=== PATIENT | male | born 1965 | race Two or more races ===

== ENCOUNTER 2021-07-29 17:49 | Emergency (ER) | payer MEDICAID, OTHER ==
[~2021-07-29] VITALS: Ht 180.3 cm; Wt 88.5 kg
[2021-07-29] MEDS ORDERED: IPRATROPIUM BROM 0.5 MG/2.5ML INH SOL ONE (18:24)
[2021-07-29] MEDS ORDERED: ALBUTEROL SULF 2.5 MG/0.5ML(0.5%) NEB SOLN ONE (18:25)
[2021-07-29] MEDS ORDERED: methylPREDNISolone SOD SUCC 125 MG/2 ML VL IV ONE (18:30)
[2021-07-29] MEDS ORDERED: ALBUTEROL SULF 2.5 MG/0.5ML(0.5%) NEB SOLN HHN ONE (18:30)
[2021-07-29] MEDS ORDERED: IPRATROPIUM BROM 0.5 MG/2.5ML INH SOL HHN ONE (18:30)
[2021-07-29 18:43] VITALS: BP 196/122
== END 2021-07-29 20:52 | disposition left against medical advice (07) ==
LOC: EDBD 17:49 → ER 17:49
DX: J45.901 Unspecified asthma with (acute) exacerbation (principal)
CPT/HCPCS: 94644; 96374; 99285; J2930; J7644

== ENCOUNTER 2021-08-22 07:06 | Inpatient (IN) | payer MEDICAID ==
[~2021-08-22] VITALS: Ht 180.3 cm; Wt 89.3 kg
[2021-08-22 08:14] LABS: Basophils # (auto) 0.1 10 ^3/uL (0-0.2); Basophils % (auto) 1.1 % (0.0-2.0); Eosinophils # (auto) 0.1 10 ^3/uL (0-0.8); Eosinophils % (auto) 0.8 % (0.0-7.0); Hematocrit 38.3 % (41.0-53.0); Hemoglobin 12.3 g/dL (13.5-17.5); Lymphocytes # (auto) 1.1 10 ^3/uL (0.4-5.4); Lymphocytes % (auto) 13.6 % (10.0-50.0); Mean Corpuscular Hemoglobin 27.7 pg (28.0-32.0); Mean Corpuscular Volume 86.5 fL (80.0-100.0); Monocytes # (auto) 0.5 10 ^3/uL (0-1.3); Monocytes % (auto) 5.6 % (0.0-12.0); Neutrophils # (auto) 6.4 10 ^3/uL (1.6-8.6); Neutrophils % (auto) 78.9 % (37.0-80.0); Nucleated Red Blood Cells % 0.1 %; Red Blood Cells 4.43 10^6/uL (4.5-5.90); Red Cell Distribution Width 16.3 % (11.8-14.3); White Blood Cell 8.1 10^3/uL (4.4-10.8)
[2021-08-22 09:50] LABS: Albumin 3.1 g/dL (3.4-5.0); Calcium 7.6 mg/dL (8.5-10.1); Potassium 3.7 mmol/L (3.5-5.1)
[2021-08-22 10:00] LABS: BUN/Creatinine Ratio 17.8; Bilirubin, Total 0.7 mg/dL (0.2-1.0)
[2021-08-22] MEDS ORDERED: NITROGLYCERIN 0.4 MG SL TAB SL PRN (14:15)
[2021-08-22] MEDS ORDERED: HYDROcodone-ACET 5/325MG TAB PO PRN (14:15)
[2021-08-22] MEDS ORDERED: ACETAMINOPHEN 325 MG TAB PO PRN (14:15)
[2021-08-22] MEDS ORDERED: MORPHINE SULFATE 4 MG/ML SYR/VIAL IV PRN (14:15)
[2021-08-22] MEDS ORDERED: MORPHINE SULFATE INJECTION 2 MG/ML SYRG IV PRN (14:15)
[2021-08-22 22:00] VITALS: BP 133/93
[2021-08-23 01:01] VITALS: BP 133/93
[2021-08-23] MEDS ORDERED: BUDE1AER4 IN (01:19)
[2021-08-23 05:00] VITALS: BP 134/94
[2021-08-23 07:09] LABS: Potassium 4.2 mmol/L (3.5-5.1)
[2021-08-23 07:12] LABS: BUN/Creatinine Ratio 20.7; Calcium 8.3 mg/dL (8.5-10.1)
[2021-08-23 07:16] LABS: Bilirubin, Total 0.5 mg/dL (0.2-1.0); Total Protein 5.9 g/dL (6.4-8.2)
[2021-08-23 07:21] LABS: Basophils # (auto) 0.1 10 ^3/uL (0-0.2); Basophils % (auto) 0.9 % (0.0-2.0); Eosinophils # (auto) 0.1 10 ^3/uL (0-0.8); Eosinophils % (auto) 1.7 % (0.0-7.0); Hematocrit 36.7 % (41.0-53.0); Hemoglobin 12.4 g/dL (13.5-17.5); Lymphocytes # (auto) 1.6 10 ^3/uL (0.4-5.4); Lymphocytes % (auto) 20.5 % (10.0-50.0); Mean Corpuscular Hemoglobin 29.4 pg (28.0-32.0); Mean Corpuscular Hgb Conc. 33.7 g/dL (32.0-36.0); Mean Corpuscular Volume 87.1 fL (80.0-100.0); Monocytes # (auto) 0.5 10 ^3/uL (0-1.3); Monocytes % (auto) 6.5 % (0.0-12.0); Neutrophils # (auto) 5.4 10 ^3/uL (1.6-8.6); Neutrophils % (auto) 70.4 % (37.0-80.0); Nucleated Red Blood Cells % 0.1 %; Red Blood Cells 4.22 10^6/uL (4.5-5.90); Red Cell Distribution Width 16.2 % (11.8-14.3); White Blood Cell 7.7 10^3/uL (4.4-10.8)
[2021-08-23] MEDS: ENOXAPARIN SOD 40 MG/0.4 ML SYRINGE SC SCH (09:00)
[2021-08-23 09:13] VITALS: BP 134/79
[2021-08-23] MEDS: CARVEDILOL 3.125 MG TAB PO SCH ×2 (10:00→23:11)
[2021-08-23 10:29] LABS: Cholesterol 138 mg/dL (< 200)
[2021-08-23] MEDS ORDERED: FUROSEMIDE 40 MG/4 ML VIAL IV ONE (10:30)
[2021-08-23 10:32] LABS: HDL Cholesterol 30 mg/dL (40-59); LDL Cholesterol 97 mg/dL (< 100); Triglycerides 72 mg/dL (< 150)
[2021-08-23] MEDS: DAPAGLIFLOZIN 5 MG TAB PO SCH (12:00)
[2021-08-23] MEDS: SACUBITRIL-VALSARTAN 24mg/26mg TAB PO SCH ×2 (12:00→23:11)
[2021-08-23 12:28] LABS: Amphetamine Screen, Urine POSITIVE (NEGATIVE); Barbiturate Scree,Urine NEGATIVE (NEGATIVE); Benzodiazephine Screen, Urine NEGATIVE (NEGATIVE); Cannabinoid Screen, Urine NEGATIVE (NEGATIVE)
[2021-08-23 12:33] LABS: Cocaine Screen, Urine NEGATIVE (NEGATIVE); Opiate Scree,Urine NEGATIVE (NEGATIVE); Phencyclidine Screen, Urine NEGATIVE (NEGATIVE)
[2021-08-23 13:00] VITALS: BP 141/89
[2021-08-23 17:18] VITALS: BP 145/90
[2021-08-23] MEDS: FUROSEMIDE 40 MG/4 ML VIAL IV SCH (17:28)
[2021-08-23] MEDS ORDERED: cefTRIAXone 1GM/50ML D5W 50 ML IV ONE (20:45)
[2021-08-23 22:00] VITALS: BP 116/67
[2021-08-23] MEDS: DOXYCYCLINE 100 MG TAB/CAP PO SCH (23:11)
[2021-08-24 05:29] VITALS: BP 117/61
[2021-08-24] MEDS: FUROSEMIDE 40 MG/4 ML VIAL IV SCH (06:21)
[2021-08-24 09:00] VITALS: BP 122/72
[2021-08-24] MEDS: CARVEDILOL 3.125 MG TAB PO SCH (09:55)
[2021-08-24] MEDS: DAPAGLIFLOZIN 5 MG TAB PO SCH (09:55)
[2021-08-24] MEDS: SACUBITRIL-VALSARTAN 24mg/26mg TAB PO SCH (09:56)
[2021-08-24] MEDS: ENOXAPARIN SOD 40 MG/0.4 ML SYRINGE SC SCH (09:56)
[2021-08-24] MEDS: DOXYCYCLINE 100 MG TAB/CAP PO SCH (09:56)
[2021-08-24] MEDS ORDERED: ALBU108A5 IN (11:14)
[2021-08-24] MEDS ORDERED: TIOTCAP IN (11:14)
[2021-08-24] MEDS ORDERED: FLUT1AER6 IN (11:14)
[2021-08-24 12:33] VITALS: BP 112/76
[2021-08-24] MEDS ORDERED: FURO40TA4 PO (13:34)
[2021-08-24] MEDS ORDERED: CAR3125T PO (13:34)
[2021-08-24] MEDS ORDERED: DOX100T PO (13:34)
[2021-08-24] MEDS ORDERED: LISI2.5T47 PO (13:35)
[2021-08-24 17:27] VITALS: BP 128/86
[2021-08-24] MEDS ORDERED: cefTRIAXone 1GM/50ML D5W 50 ML IV SCH (21:00)
== END 2021-08-24 18:00 | disposition home or self-care (01) | DRG 194 ==
LOC: ER 07:06 → EDBD 07:06 → TELE 14:08 → TELE-WESTW 22:03
PROVIDERS: ADMIT Internal Medicine; ATTEND Internal Medicine Nephrology
DX: I50.23 Acute on chronic systolic (congestive) heart failure (principal); I27.20 Pulmonary hypertension, unspecified; I47.2 Ventricular tachycardia; I24.9 Acute ischemic heart disease, unspecified; I42.7 Cardiomyopathy due to drug and external agent; E66.9 Obesity, unspecified; Z20.822 Contact with and (suspected) exposure to COVID-19; F15.90 Other stimulant use, unspecified, uncomplicated; F19.10 Other psychoactive substance abuse, uncomplicated; I36.1 Nonrheumatic tricuspid (valve) insufficiency; J44.9 Chronic obstructive pulmonary disease, unspecified; N18.2 Chronic kidney disease, stage 2 (mild); Z91.19 Patient's noncompliance with other medical treatment and regimen; Z68.27 Body mass index [BMI] 27.0-27.9, adult
CPT/HCPCS: 36415; 71045; 80053; 80061; 80307; 83036; 83880; 84443; 84484; 85025; 87081; 93005; 93306; G0378; J0696

== ENCOUNTER 2021-10-27 20:07 | Emergency (ER) | payer MEDICAID ==
[~2021-10-27] VITALS: Ht 180.3 cm; Wt 83.9 kg
[~2021-10-27 20:07] MED LIST: ALBU108A5 IN; CAR3125T PO; DOX100T PO; FLUT1AER6 IN; FURO40TA4 PO; TIOTCAP IN
[2021-10-27 21:18] LABS: Basophils # (auto) 0.1 10 ^3/uL (0-0.2); Basophils % (auto) 1.3 % (0.0-2.0); Eosinophils # (auto) 0.4 10 ^3/uL (0-0.8); Hematocrit 39.1 % (41.0-53.0); Hemoglobin 12.7 g/dL (13.5-17.5); Lymphocytes # (auto) 1.5 10 ^3/uL (0.4-5.4); Mean Corpuscular Hemoglobin 28.2 pg (28.0-32.0); Mean Corpuscular Hgb Conc. 32.4 g/dL (32.0-36.0); Mean Corpuscular Volume 87.1 fL (80.0-100.0); Monocytes # (auto) 0.6 10 ^3/uL (0-1.3); Monocytes % (auto) 6.4 % (0.0-12.0); Neutrophils # (auto) 6.6 10 ^3/uL (1.6-8.6); Neutrophils % (auto) 72.3 % (37.0-80.0); Nucleated Red Blood Cells % 0.1 %; Red Blood Cells 4.49 10^6/uL (4.5-5.90); Red Cell Distribution Width 15.4 % (11.8-14.3); White Blood Cell 9.2 10^3/uL (4.4-10.8)
[2021-10-27 21:36] LABS: Potassium 4.9 mmol/L (3.5-5.1)
[2021-10-27 21:41] LABS: Albumin 3.1 g/dL (3.4-5.0); BUN/Creatinine Ratio 17.6; Calcium 8.4 mg/dL (8.5-10.1); Magnesium 2.3 mg/dL (1.6-2.6)
[2021-10-27 21:44] LABS: Bilirubin, Total 0.5 mg/dL (0.2-1.0); Total Protein 6.5 g/dL (6.4-8.2)
[2021-10-27] MEDS ORDERED: FUROSEMIDE 100 MG/10ML VIAL IV ONE (23:15)
[2021-10-28 02:30] VITALS: BP 139/91
== END 2021-10-28 03:15 | disposition home or self-care (01) ==
LOC: ER 20:15
DX: I50.9 Heart failure, unspecified (principal); J45.909 Unspecified asthma, uncomplicated; Z91.19 Patient's noncompliance with other medical treatment and regimen; Z79.2 Long term (current) use of antibiotics; Z79.899 Other long term (current) drug therapy
CPT/HCPCS: 36415; 71045; 80053; 83735; 83880; 84443; 84484; 85025; 93005; 96374; 99285; J1940

== ENCOUNTER 2021-10-28 05:19 | Inpatient (IN) | payer OTHER, MEDICAID ==
[~2021-10-28] VITALS: Ht 180.3 cm; Wt 86.0 kg
[2021-10-28 11:57] LABS: Basophils # (auto) 0.1 10 ^3/uL (0-0.2); Basophils % (auto) 1.5 % (0.0-2.0); Eosinophils # (auto) 0.2 10 ^3/uL (0-0.8); Eosinophils % (auto) 2.9 % (0.0-7.0); Hematocrit 37.6 % (41.0-53.0); Hemoglobin 12.1 g/dL (13.5-17.5); Lymphocytes # (auto) 1.1 10 ^3/uL (0.4-5.4); Lymphocytes % (auto) 13.2 % (10.0-50.0); Mean Corpuscular Hemoglobin 27.7 pg (28.0-32.0); Mean Corpuscular Hgb Conc. 32.1 g/dL (32.0-36.0); Mean Corpuscular Volume 86.3 fL (80.0-100.0); Monocytes # (auto) 0.4 10 ^3/uL (0-1.3); Monocytes % (auto) 4.9 % (0.0-12.0); Neutrophils # (auto) 6.2 10 ^3/uL (1.6-8.6); Neutrophils % (auto) 77.5 % (37.0-80.0); Nucleated Red Blood Cells % 0.1 %; Red Blood Cells 4.35 10^6/uL (4.5-5.90); Red Cell Distribution Width 15.4 % (11.8-14.3); White Blood Cell 7.9 10^3/uL (4.4-10.8)
[2021-10-28] MEDS ORDERED: FUROSEMIDE 40 MG/4 ML VIAL IV ONE (12:00)
[2021-10-28] MEDS ORDERED: ASPirin 81 mg TAB PO ONE (12:00)
[2021-10-28 12:16] LABS: Albumin 3.1 g/dL (3.4-5.0); Calcium 8.2 mg/dL (8.5-10.1); Magnesium 2.2 mg/dL (1.6-2.6); Potassium 3.7 mmol/L (3.5-5.1)
[2021-10-28 12:21] LABS: Bilirubin, Total 0.6 mg/dL (0.2-1.0); Total Protein 6.7 g/dL (6.4-8.2)
[2021-10-28] MEDS ORDERED: NITROGLYCERIN 0.4 MG SL TAB SL PRN (13:00)
[2021-10-28] MEDS ORDERED: MORPHINE SULFATE INJECTION 2 MG/ML SYRG IV PRN ×2 (13:00→14:15)
[2021-10-28] MEDS ORDERED: DOCUSATE SOD 100 MG CAP PO PRN (14:15)
[2021-10-28] MEDS ORDERED: ONDANSETRON HCL 4 MG/2 ML VIAL IV PRN (14:15)
[2021-10-28] MEDS ORDERED: FAMOTIDINE (10MG/ML) 2ML VL IV ONE (14:15)
[2021-10-28] MEDS ORDERED: ACETAMINOPHEN 325 MG TAB PO PRN (14:15)
[2021-10-28] MEDS ORDERED: hydrALAZINE HCL 20 MG/ML VL IV PRN (14:15)
[2021-10-28] MEDS ORDERED: LORazepam 0.5 MG TAB PO PRN (14:15)
[2021-10-28 14:35] LABS: Phosphorus 3.5 mg/dL (2.5-4.90)
[2021-10-28 17:12] LABS: INR 1.4 (0.9-1.15); Partial Thromboplastin Time 26.2 sec (23.6-33.0)
[2021-10-28] MEDS: IPRATROPIUM BROM 0.5 MG/2.5ML INH SOL NEB SCH ×2 (18:00→22:00)
[2021-10-28] MEDS: BUMETANIDE 2.5mg/10ml (0.25 mg/ml) INJ IV SCH (18:18)
[2021-10-28 18:56] VITALS: BP 151/104
[2021-10-28 20:36] VITALS: BP 144/92
[2021-10-28] MEDS ORDERED: ATORVASTATIN 20 MG TAB PO SCH (22:00)
[2021-10-28] MEDS: CARVEDILOL 3.125 MG TAB PO SCH (22:23)
[2021-10-29] VITALS (13 sets, daily range): BP systolic 113–142; BP diastolic 64–91
[2021-10-29] MEDS ORDERED: IPRATROPIUM BROM 0.5 MG/2.5ML INH SOL NEB PRN (02:00)
[2021-10-29] MEDS: BUMETANIDE 2.5mg/10ml (0.25 mg/ml) INJ IV SCH ×2 (06:12→17:58)
[2021-10-29 07:29] LABS: Urine WBC None Seen /hpf (0 - 3)
[2021-10-29 07:34] LABS: Urine Bacteria NONE SEEN /hpf (None Seen); Urine Blood Negative /uL (Negative)
[2021-10-29 07:54] LABS: Alcohol, Urine < 3.0 mg/dL (0-10); Amphetamine Screen, Urine NEGATIVE (NEGATIVE); Barbiturate Scree,Urine NEGATIVE (NEGATIVE); Benzodiazephine Screen, Urine NEGATIVE (NEGATIVE); Cannabinoid Screen, Urine POSITIVE (NEGATIVE); Cocaine Screen, Urine NEGATIVE (NEGATIVE); Opiate Scree,Urine NEGATIVE (NEGATIVE); Phencyclidine Screen, Urine NEGATIVE (NEGATIVE); Protein, Urine 8.9 mg/dL (0.0-11.9)
[2021-10-29] MEDS ORDERED: ANGIOMAX 250 MG VIAL IV ONE (09:06)
[2021-10-29] MEDS ORDERED: VERAPAMIL 2.5MG/ML INJ 2ML VIAL IV ONE (09:06)
[2021-10-29] MEDS ORDERED: HEPARIN SODIUM (PORCINE) 5000 UNITS/ML 1ML VIAL ONE (09:06)
[2021-10-29] MEDS ORDERED: SODIUM CHL 0.9% 0 ML ONE (09:07)
[2021-10-29] MEDS ORDERED: fentaNYL CITRATE 100 MCG/2 ML VL ONE (09:07)
[2021-10-29] MEDS ORDERED: METOCLOPRAMIDE HCL 5MG/ml INJ 2ml VIAL ONE (09:08)
[2021-10-29] MEDS: CARVEDILOL 3.125 MG TAB PO SCH ×2 (10:00→21:55)
[2021-10-29] MEDS ORDERED: FAMOTIDINE (10MG/ML) 2ML VL IV SCH (10:00)
[2021-10-29] MEDS: ASPirin 81 mg TAB PO SCH (10:00)
[2021-10-29] MEDS: BENAZEPRIL HCL 10 MG TAB PO SCH (10:00)
[2021-10-29] MEDS: ENOXAPARIN SOD 40 MG/0.4 ML SYRINGE SC SCH (10:00)
[2021-10-29 13:55] LABS: Basophils # (auto) 0.1 10 ^3/uL (0-0.2); Basophils % (auto) 1.3 % (0.0-2.0); Eosinophils # (auto) 0.5 10 ^3/uL (0-0.8); Eosinophils % (auto) 5.8 % (0.0-7.0); Hematocrit 35.9 % (41.0-53.0); Hemoglobin 11.8 g/dL (13.5-17.5); Lymphocytes # (auto) 0.8 10 ^3/uL (0.4-5.4); Mean Corpuscular Hemoglobin 28.4 pg (28.0-32.0); Mean Corpuscular Hgb Conc. 32.9 g/dL (32.0-36.0); Mean Corpuscular Volume 86.2 fL (80.0-100.0); Monocytes # (auto) 0.5 10 ^3/uL (0-1.3); Neutrophils # (auto) 6.2 10 ^3/uL (1.6-8.6); Neutrophils % (auto) 76.9 % (37.0-80.0); Red Blood Cells 4.16 10^6/uL (4.5-5.90); Red Cell Distribution Width 15.4 % (11.8-14.3); White Blood Cell 8.1 10^3/uL (4.4-10.8)
[2021-10-29 14:07] LABS: Albumin 2.8 g/dL (3.4-5.0); Calcium 8.1 mg/dL (8.5-10.1); Magnesium 1.6 mg/dL (1.6-2.6); Potassium 3.4 mmol/L (3.5-5.1)
[2021-10-29 14:13] LABS: BUN/Creatinine Ratio 17.3; Bilirubin, Total 0.6 mg/dL (0.2-1.0); CRP High Sensitivity 0.85 mg/dL (< 0.3); Phosphorus 3.6 mg/dL (2.5-4.90); Total Protein 6.4 g/dL (6.4-8.2)
[2021-10-29 14:19] LABS: Thyroid Stimulating Hormone 1.43 uIU/mL (0.358-3.74)
[2021-10-29 14:24] LABS: INR 1.41 (0.9-1.15); Partial Thromboplastin Time 22.3 sec (23.6-33.0)
[2021-10-29] MEDS ORDERED: POTASSIUM CHL 10 Meq TABLET PO ONE (15:30)
[2021-10-29] MEDS: MAGNESIUM OXIDE 400 MG TAB PO SCH (21:55)
[2021-10-29] MEDS: ATORVASTATIN 20 MG TAB PO SCH (21:56)
[2021-10-29] MEDS ORDERED: POTASSIUM CHL 10 Meq TABLET PO SCH (22:00)
[2021-10-29] MEDS: HYDROcodone-ACET 5/325MG TAB PO PRN (23:22)
[2021-10-30] MEDS ORDERED: MORPHINE SULFATE 4 MG/ML SYR/VIAL IV PRN ×2 (04:00)
[2021-10-30 05:00] VITALS: BP 132/70
[2021-10-30] MEDS: BUMETANIDE 2.5mg/10ml (0.25 mg/ml) INJ IV SCH (05:17)
[2021-10-30 09:00] VITALS: BP 110/64
[2021-10-30 09:26] LABS: BUN/Creatinine Ratio 16.2; Calcium 8.2 mg/dL (8.5-10.1)
[2021-10-30] MEDS: CARVEDILOL 3.125 MG TAB PO SCH ×2 (10:08→21:31)
[2021-10-30] MEDS: BENAZEPRIL HCL 10 MG TAB PO SCH (10:09)
[2021-10-30] MEDS: POTASSIUM CHL 20 Meq TABLET PO SCH ×2 (10:09→21:31)
[2021-10-30] MEDS: MAGNESIUM OXIDE 400 MG TAB PO SCH ×2 (10:09→21:30)
[2021-10-30] MEDS: ASPirin 81 mg TAB PO SCH (10:09)
[2021-10-30] MEDS: ENOXAPARIN SOD 40 MG/0.4 ML SYRINGE SC SCH (10:09)
[2021-10-30 13:00] VITALS: BP 100/63
[2021-10-30] MEDS ORDERED: POTASSIUM CHL 20 Meq TABLET PO ONE (14:15)
[2021-10-30] MEDS ORDERED: ATOR20TA PO ×2 (15:30)
[2021-10-30] MEDS ORDERED: ASPI-543 PO ×2 (15:30)
[2021-10-30] MEDS ORDERED: MAGN241.4 PO ×2 (16:34)
[2021-10-30] MEDS ORDERED: POTA-220 PO ×2 (16:34)
[2021-10-30] MEDS ORDERED: EMPA1TAB PO ×2 (16:34)
[2021-10-30] MEDS ORDERED: CAR3125T PO ×2 (16:34)
[2021-10-30] MEDS ORDERED: BENA10TA15 PO ×2 (16:34)
[2021-10-30 17:00] VITALS: BP 100/57
[2021-10-30] MEDS: FUROSEMIDE 20 MG TAB PO SCH (17:24)
[2021-10-30] MEDS: ATORVASTATIN 20 MG TAB PO SCH (21:30)
[2021-10-30 22:00] VITALS: BP 113/68
[2021-10-31 04:53] VITALS: BP 103/60
[2021-10-31] MEDS: FUROSEMIDE 20 MG TAB PO SCH (05:16)
[2021-10-31 08:24] LABS: Calcium 8.4 mg/dL (8.5-10.1)
[2021-10-31 08:26] LABS: BUN/Creatinine Ratio 18.8
[2021-10-31] MEDS: POTASSIUM CHL 20 Meq TABLET PO SCH (08:48)
[2021-10-31] MEDS: MAGNESIUM OXIDE 400 MG TAB PO SCH ×2 (08:48→22:06)
[2021-10-31] MEDS: ASPirin 81 mg TAB PO SCH (08:48)
[2021-10-31] MEDS: ENOXAPARIN SOD 40 MG/0.4 ML SYRINGE SC SCH (08:48)
[2021-10-31] MEDS: BENAZEPRIL HCL 10 MG TAB PO SCH (08:50)
[2021-10-31] MEDS: CARVEDILOL 3.125 MG TAB PO SCH ×2 (08:50→22:07)
[2021-10-31 08:51] VITALS: BP 102/50
[2021-10-31] MEDS: HYDROcodone-ACET 5/325MG TAB PO PRN (08:52)
[2021-10-31 13:15] VITALS: BP 117/67
[2021-10-31 17:00] VITALS: BP 119/69
[2021-10-31 21:37] VITALS: BP 119/69
[2021-10-31 21:59] VITALS: BP 121/82
[2021-10-31] MEDS: ATORVASTATIN 20 MG TAB PO SCH (22:06)
[2021-11-01 05:07] VITALS: BP 140/85
[2021-11-01 09:53] VITALS: BP 125/80
[2021-11-01] MEDS: ASPirin 81 mg TAB PO SCH (10:05)
[2021-11-01] MEDS: CARVEDILOL 3.125 MG TAB PO SCH ×2 (10:06→21:44)
[2021-11-01] MEDS: BENAZEPRIL HCL 10 MG TAB PO SCH (10:07)
[2021-11-01] MEDS: POTASSIUM CHL 20 Meq TABLET PO SCH (10:07)
[2021-11-01] MEDS: FUROSEMIDE 20 MG TAB PO SCH (10:07)
[2021-11-01] MEDS: MAGNESIUM OXIDE 400 MG TAB PO SCH ×2 (10:08→21:43)
[2021-11-01] MEDS: ENOXAPARIN SOD 40 MG/0.4 ML SYRINGE SC SCH (10:08)
[2021-11-01] MEDS: HYDROcodone-ACET 5/325MG TAB PO PRN (10:48)
[2021-11-01 13:08] VITALS: BP 138/93
[2021-11-01] MEDS ORDERED: LORazepam 2MG/ML-1ML VIAL IV PRN (15:30)
[2021-11-01 17:12] VITALS: BP 109/63
[2021-11-01] MEDS: ATORVASTATIN 20 MG TAB PO SCH (21:43)
[2021-11-01 22:00] VITALS: BP 143/79
[2021-11-02] MEDS: HYDROcodone-ACET 5/325MG TAB PO PRN (03:07)
[2021-11-02 05:01] VITALS: BP 111/69
[2021-11-02 07:45] LABS: Calcium 8.5 mg/dL (8.5-10.1)
[2021-11-02 07:46] LABS: BUN/Creatinine Ratio 19.2; Potassium 4.4 mmol/L (3.5-5.1)
[2021-11-02 09:00] VITALS: BP 124/77
[2021-11-02] MEDS: ASPirin 81 mg TAB PO SCH (10:24)
[2021-11-02] MEDS: ENOXAPARIN SOD 40 MG/0.4 ML SYRINGE SC SCH (10:24)
[2021-11-02] MEDS: POTASSIUM CHL 20 Meq TABLET PO SCH (10:25)
[2021-11-02] MEDS: BENAZEPRIL HCL 10 MG TAB PO SCH (10:25)
[2021-11-02] MEDS: FUROSEMIDE 20 MG TAB PO SCH (10:25)
[2021-11-02] MEDS: CARVEDILOL 3.125 MG TAB PO SCH (10:26)
[2021-11-02] MEDS: MAGNESIUM OXIDE 400 MG TAB PO SCH (10:26)
[2021-11-02 11:23] VITALS: BP 124/77
== END 2021-11-02 12:32 | disposition home or self-care (01) | DRG 286 ==
LOC: ER 05:19 → TELE 12:56 → TELE-WESTW 20:05
PROVIDERS: ADMIT Hospitalist; ATTEND Internal Medicine
PROC: 4A023N7 Measurement of Cardiac Sampling and Pressure, Left Heart, Percutaneous Approach (ICD-10-PCS; principal; 2021-10-29)
PROC: B211YZZ Fluoroscopy of Multiple Coronary Arteries using Other Contrast (ICD-10-PCS; 2021-10-29)
PROC: B215YZZ Fluoroscopy of Left Heart using Other Contrast (ICD-10-PCS; 2021-10-29)
DX: I13.0 Hypertensive heart and chronic kidney disease with heart failure and stage 1 through stage 4 chronic kidney disease, or unspecified chronic kidney disease (principal); I50.43 Acute on chronic combined systolic (congestive) and diastolic (congestive) heart failure; I47.2 Ventricular tachycardia; I42.7 Cardiomyopathy due to drug and external agent; I27.20 Pulmonary hypertension, unspecified; J44.9 Chronic obstructive pulmonary disease, unspecified; N18.2 Chronic kidney disease, stage 2 (mild); E87.6 Hypokalemia; E66.9 Obesity, unspecified; Z20.822 Contact with and (suspected) exposure to COVID-19; E78.5 Hyperlipidemia, unspecified; F12.90 Cannabis use, unspecified, uncomplicated; F17.200 Nicotine dependence, unspecified, uncomplicated; Z91.14 Patient's other noncompliance with medication regimen; Z79.899 Other long term (current) drug therapy
CPT/HCPCS: 36415; 71045; 80048; 80053; 80061; 80307; 81001; 82550; 82728; 83036; 83615; 83690; 83735; 83880; 84100; 84156; 84439; 84443; 84484; 85025; 85379; 85610; 85652; 85730; 86141; 86850; 86900; 86901; 87040; 87086; 96374; 96375; 99152; G0378; J3490